=== PATIENT | male | born 2000 | race Native Hawaiian/Other Pacific Islander ===

== ENCOUNTER 2020-05-12 12:43 | Outpatient (CLI) | payer BC, OTHER ==
[~2020-05-12 12:43] MED LIST: CEPH500C20 PO; MUPI2OIN2 TOP; ZOLOFT25 MG PO
== END 2020-05-12 23:54 | disposition home or self-care (01) ==
LOC: RAD 12:43
DX: R05 Cough (principal)

== ENCOUNTER 2020-11-04 13:49 | Outpatient (CLI) | payer BC | END 2020-11-04 19:42 | disposition home or self-care (01) | LOC: RAD 13:49 | PROVIDERS: ATTEND Registered Nurse | DX: S99.922A Unspecified injury of left foot, initial encounter (principal) ==

== ENCOUNTER 2021-04-29 13:15 | Outpatient (CLI) | payer BC ==
[2021-04-29 13:37] LABS: PLATELET COUNT 240 K/uL (142-355)
[2021-04-29 13:58] LABS: POTASSIUM 4.1 mmol/L (3.6-5.2)
== END 2021-04-29 19:40 | disposition home or self-care (01) ==
LOC: LABW 13:15
PROVIDERS: ATTEND Nurse Practitioner Family
DX: F63.81 Intermittent explosive disorder (principal)
CPT/HCPCS: 36415; 80053; 80061; 80164; 84439; 84443; 85027

== ENCOUNTER 2021-12-09 12:31 | Outpatient (CLI) | payer BC ==
[2021-12-09 12:50] LABS: PLATELET COUNT 307 K/uL (142-355)
[2021-12-09 14:12] LABS: SODIUM 143 mmol/L (136-145)
== END 2021-12-09 20:19 | disposition home or self-care (01) ==
LOC: LABW 12:31
PROVIDERS: ATTEND Nurse Practitioner Family
DX: F33.1 Major depressive disorder, recurrent, moderate (principal)
CPT/HCPCS: 36415; 80053; 80164; 82306; 84439; 85027

== ENCOUNTER 2022-11-23 09:33 | Outpatient (CLI) | payer BC ==
[~2022-11-23] VITALS: Ht 167.6 cm; Wt 62.1 kg
[2022-11-23 09:43] VITALS: BP 118/69; TEMP 98.7
[2022-11-23 09:59] LABS: POTASSIUM 4.5 mmol/L (3.6-5.2)
== END 2022-11-23 19:39 | disposition home or self-care (01) ==
LOC: INF 09:33
PROVIDERS: ATTEND Family Medicine
DX: E86.0 Dehydration (principal); R11.10 Vomiting, unspecified
CPT/HCPCS: 36415; 80053; 82150; 83690; 96360; 96361